=== PATIENT | male | born 1990 | race African-American/Black ===

== ENCOUNTER 2022-08-03 21:00 | Emergency (ER) | payer MEDICAID, SELFPAY ==
[2022-08-03 21:02] VITALS: BP 115/71; PULSE 98; RESP 18; TEMP 36.3; O2SAT 98; BMI 23.7
--- NOTE | 2022-08-03 21:05 | ED.RN ---
PT. DENIES ANY DRUG USE. UNABLE TO SIT STILL KEEPS LOOKING AROUND THE ROOM. TWITCHING.
--- NOTE | 2022-08-03 22:22 | EX.ED.DYSGE1 ---
HPI History of Present Illness Chief Complaint: Nausea/Vomiting Informant: patient and EMS Narrative Narrative: Patient reportedly brought in by EMS after he had nausea and vomiting on a bus going through the area. They state that he was acting with bizarre behavior and brought into the emergency room. I was able to review his records on clinic sink. It appears the patient has a history of schizophrenia, HIV, substance abuse including methamphetamines, and bipolar disorder. He apparently lives in the [facility] but has family in [place]. [facility] Medical History Bipolar disorder HIV (human immunodeficiency virus infection) Methamphetamine abuse Schizophrenia Allergy/AdvReac Type Severity Reaction Status Date / Time No Known Allergies Allergy Verified 08/03/22 21:02 Social History Smoking Status: Never smoker ROS ROS ED ROS Narrative Patient drowsy and only answering some questions. Is not able to verbally tell me why he is in the emergency room tonight. He did state he started with vomiting just this evening. He does report abdominal pain. He denies diarrhea. Constitutional Constitutional ED: Denies chills or fever(s) ENT ENT ED: Denies sore throat Cardiovascular Cardiovascular: Denies chest pain or palpitations Respiratory/Chest Respiratory/Chest: Denies cough or dyspnea Gastrointestinal Gastrointestinal: Reports abdominal pain, nausea and vomiting; Denies diarrhea Integumentary Denies abscess Neurologic Neurologic: Denies headache(s) Allergic/Immunologic Allergic/Immunologic ED: Denies mouth swelling or tongue swelling EXAM Physical Exam Narrative Exam Narrative: Patient sleeping comfortably as I enter the room. He does not respond when his name is called. When I call his name and touch his leg he jumps. Const Vital Signs: 08/03/22 21:02 08/04/22 00:30 08/04/22 02:14 Temperature 97.4 F L Temperature Source Temporal Pulse Rate 98 71 Respiratory Rate 18 16 17 Blood Pressure 115/71 115/56 L Blood Pressure Mean 85 75 Pulse Ox 98 Oxygen Delivery Method Room Air Room Air 08/04/22 02:50 08/04/22 06:00 Temperature Temperature Source Pulse Rate 63 89 Respiratory Rate 17 16 Blood Pressure 120/66 105/72 Blood Pressure Mean 84 83 Pulse Ox 98 Oxygen Delivery Method Room Air Room Air Positive well nourished and well developed General Appearance ED: well developed HEENT Reports normocephalic and head/scalp atraumatic Eyes PERRL and EOMs intact bilaterally Neck supple Chest Wall inspection of chest normal and palpation of chest normal Resp normal respiratory effort and clear to auscultation bilaterally Cardio regular rate and regular rhythm GI non-tender Auscultation: hypoactive bowel sounds Palpation: soft Back/Spine no CVA tenderness Extremity normal to inspection Neuro no sensory deficits noted Neuro Narrative: Patient is alert. He answers some questions. He states he is cold and is asking for blankets. He does not know why he is in the emergency room. Sensorium / Orientation: alert Motor Exam: strength 5/5 throughout Psych Mood & Affect: anxious Skin no rashes or lesions noted MDM MDM MDM Narrative Medical decision making narrative: Patient was given IM Phenergan to help control nausea. Lab work for psychiatric clearance obtained. Lab Data Attestation: I reviewed the patient's lab results. Labs: Laboratory Results - last 24 hr 08/03/22 08/03/22 08/03/22 22:35 22:35 22:35 WBC 6.1 RBC 4.42 L Hgb 12.5 L Hct 38.0 L MCV 86.0 MCH 28.3 MCHC 32.9 RDW Std Deviation 41.0 RDW Coeff of [place] 13.2 Plt Count 229 MPV 9.6 Immature Gran % (Auto) 0.200 Neut % (Auto) 60.7 Lymph % (Auto) 28.0 [place] % (Auto) 10.0 Eos % (Auto) 0.8 Baso % (Auto) 0.3 Absolute Neuts (auto) 3.7 Absolute Lymphs (auto) 1.71 Nucleated RBC % 0 Sodium 136 Potassium 3.5 Chloride 102 Carbon Dioxide 21.0 Anion Gap 13 BUN 22 H Creatinine 1.10 Estim Creat Clear Calc 108.95 Est GFR (MDRD) Af Amer 100 Est GFR (MDRD) Non-Af 82 BUN/Creatinine Ratio 20.0 Glucose 90 Calcium 8.8 Total Bilirubin 1.10 H Direct Bilirubin 0.31 H AST 43 H ALT 37 Alkaline Phosphatase 50 Total Protein 8.0 Albumin 4.0 Globulin 4.0 Lipase 60 L Urine Opiates Screen Urine Methadone Screen Ur Barbiturates Screen Valproic Acid Ur Phencyclidine Scrn Ur Amphetamines Screen MDMA (Ecstasy) Screen U Benzodiazepines Scrn Urine Cocaine Screen U Cannabinoids Screen Ur Drug Screen Comment Ethyl Alcohol < 3.0 10/01/22 10/01/22 22:35 22:35 WBC RBC Hgb Hct MCV MCH MCHC RDW Std Deviation RDW Coeff of [place] Plt Count MPV Immature Gran % (Auto) Neut % (Auto) Lymph % (Auto) [place] % (Auto) Eos % (Auto) Baso % (Auto) Absolute Neuts (auto) Absolute Lymphs (auto) Nucleated RBC % Sodium Potassium Chloride Carbon Dioxide Anion Gap BUN Creatinine Estim Creat Clear Calc Est GFR (MDRD) Af Amer Est GFR (MDRD) Non-Af BUN/Creatinine Ratio Glucose Calcium Total Bilirubin Direct Bilirubin AST ALT Alkaline Phosphatase Total Protein Albumin Globulin Lipase Urine Opiates Screen NEGATIVE Urine Methadone Screen NEGATIVE Ur Barbiturates Screen NEGATIVE Valproic Acid < 3 L Ur Phencyclidine Scrn NEGATIVE Ur Amphetamines Screen POSITIVE H MDMA (Ecstasy) Screen POSITIVE H U Benzodiazepines Scrn NEGATIVE Urine Cocaine Screen NEGATIVE U Cannabinoids Screen NEGATIVE Ur Drug Screen Comment Ethyl Alcohol Treatment and Re-Evaluation Narrative: Rapid COVID test is negative. CBC and chemistry studies unremarkable. LFTs with no significant abnormalities. Lipase is normal. Alcohol levels negative. Tox screen is positive for amphetamines and MDMA. Valproic acid is less than 3. Patient slept in the emergency room the majority of the night. At this time he states he is not sure where he is. He states he does remember being on the bus headed from [place] to [place]. He members getting sick and vomiting on the bus. At this time we will have patient evaluated by crisis. Prior visits including prior psychiatric evaluation are printed and available on the patient's chart. This be signed out to oncoming physician. Discharge Plan Triage Chief Complaint: Nausea/Vomiting ED Provider: Jodee Ibarra Dx/Rx/DC Orders Clinical Impression: Vomiting, Hx of schizophrenia Primary Care Provider: Care Physician,No Primary Referrals: Care Physician,No Primary [Primary Care Provider] -
[2022-08-03] MEDS: proMETHazine 25 MG/ML Syringe 12.5 MG IM (22:41)
[2022-08-03 22:44] LABS: Absolute Lymphocyte Count 1.71 X10^3/uL (0.83-4.51); Absolute Neutrophil Count 3.7 X10^3/uL (2.0-7.7); Basophil# 0.02 X10^3/uL; Basophil% 0.3 % (0-1); Eosinophil# 0.05 X10^3/uL; Eosinophils% 0.8 % (0-5); Hemoglobin 12.5 g/dL (13.0-16.5); Lymphocyte # 1.71 X10^3/ul (0.83-4.51); Mean Corp Hgb Conc 32.9 g/dL (32-36); Mean Corpuscular Hgb 28.3 pg (27.0-32.0); Mean Platelet Vol. 9.6 fl (6.2-12.0); Monocyte# 0.61 X10^3/uL; NRBC Flagged by Analyzer 0 % (0-5); Neutrophil % 60.7 % (47-70); Platelet Count 229 K/mm3 (150-450); RBC Distribution Width CV 13.2 % (11.6-14.6); Red Blood Count 4.42 M/mm3 (4.6-6.2); White Blood Count 6.1 K/mm3 (4.4-11.0)
[2022-08-03 23:00] LABS: Amphetamine Urine VISTA POSITIVE (<1000 ng/mL); Barbiturate Urine VISTA NEGATIVE (< 200 ng/mL); Benzodiazepine Urine VISTA NEGATIVE (< 200 ng/mL); Cocaine Urine VISTA NEGATIVE (< 300 ng/mL); Ecstacy Urine VISTA POSITIVE (< 500 ng/mL); Methadone Urine VISTA NEGATIVE (< 300 ng/mL); PCP Urine VISTA NEGATIVE (< 25 ng/mL); THC Urine VISTA NEGATIVE (< 50 ng/mL); Valproic Acid (Depakene) Level < 3 ug/mL (50-100); Vista UDS pH Range 4
[2022-08-03 23:03] LABS: AST(SGOT) 43 U/L (15-37); Alanine Aminotransfer ALT/SGPT 37 U/L (16-61); Alkaline Phosphatase 50 U/L (45-117); Anion Gap 13 (5-15); BUN 22 mg/dL (7-18); Bilirubin, Direct 0.31 mg/dL (0.00-0.30); Calcium,Total 8.8 mg/dL (8.5-10.1); Chloride 102 mmol/L (98-107); EST Glomerular Filtration Rate 82 mL/min (>60); Est Glom Filt Rate - Afr Amer 100 mL/min (>60); Estimated Creatinine Clearance 108.95 ml/min; Glucose 90 mg/dL (74-106); Lipase 60 U/L (73-393); Potassium 3.5 mmol/L (3.5-5.1); Sodium Level 136 mmol/L (136-145)
[2022-08-03 23:10] LABS: Alcohol, Blood (Medical)-Serum < 3.0 mg/dL
[2022-08-04 00:30] VITALS: RESP 16
[2022-08-04 02:14] VITALS: BP 115/56; PULSE 71; RESP 17
[2022-08-04 02:50] VITALS: BP 120/66; PULSE 63; RESP 17
[2022-08-04 06:00] VITALS: BP 105/72; PULSE 89; RESP 16; O2SAT 98
--- NOTE | 2022-08-04 06:48 | ED.RN ---
crisis paged to speak to patient at this time
--- NOTE | 2022-08-04 07:22 | NURSING ---
FAXED TO CHART TO CRISIS
[2022-08-04 09:19] VITALS: RESP 18
== END 2022-08-04 09:19 | disposition home or self-care (01) ==
PROVIDERS: Emergency Provider Emergency Medicine; Visit Provider Emergency Medicine
DX: R11.2 Nausea with vomiting, unspecified (principal); F20.9 Schizophrenia, unspecified
CPT/HCPCS: 80048; 80076; 80164; 80307; 82077; 83690; 85025; 87811; 96372; 99285; A4216